=== PATIENT | male | born 1945 | race Caucasian/White ===

== ENCOUNTER 2021-08-23 10:44 | Inpatient (IN) | payer MEDICARE, SELFPAY ==
[2021-08-23] VITALS (8 sets, daily range): BP systolic 110–156; BP diastolic 56–86; PULSE 80–102; RESP 16–21; TEMP 36.4–36.6; O2SAT 91–97
--- NOTE | ~2021-08-23 | CT_ITS ---
EXAMINATION: CTA chest PE protocol EXAM DATE: 08/23/2021 22:23 INDICATION: Shortness of breath. TECHNIQUE: Spiral CTA of the chest (pulmonary arteries) was performed with 100 cc Omnipaque 350 intr avenous contrast injection. Images were acquired during the pulmonary arterial phase. Coronal maxi mum intensity projection 3D-reconstructions were created by the technologist on dedicated workstation . Axial, coronal and sagittal reformatted images were reviewed. The dose-length product (DLP) for t his examination was 300.98 mGy-cm. The exposure was tailored according to patient size (auto mA exp osure control), and iterative reconstruction (ASIR) was used as additional dose reduction technique. There is no prior study for comparison. FINDINGS: There is large right-sided pulmonary embolism nearly occluding the right mainstem bronchus . Scattered extension into segmental pulmonary arteries on the right. There are scattered segmental l eft sided pulmonary emboli. Evidence of right heart strain. Large clot burden. No thoracic aortic dis section. Some small regions of mosaic attenuation, could be air trapping or early infarction. There is an aberrant right subclavian artery, a normal congenital variant. There are no pleural or pericar dial effusions. Tracheobronchial tree is patent. There is no mediastinal, hilar or axillary lymph adenopathy. There is no pneumothorax. Heart normal in size. There is mild coronary arterial johnson cification, arterial sclerosis. Some right renal calcification, cortical scarring. Bilateral adrenal hyperplasia. There is thoracic spondylosis without osteoblastic or osteolytic lesions identified. IMPRESSION: 1. Bilateral pulmonary emboli, high clot burden. Evidence of right heart strain. 2. Regions of faint mosaic attenuation probably air trapping. Early infarction or groundglass airspa ce disease not excludable. I discussed pulmonary emboli with Nicolasa Garza MD at 08/23/2021 22:29 CURER ACID DRUM. Reviewed, dictated and finalized at location A. R ACID DRUM IMPRESSION: 1. Bilateral pulmonary emboli, high clot burden. Evidence of right heart strai n. 2. Regions of faint mosaic attenuation probably air trapping. Early infarction or groundglass airspace disease not excludable. I discussed pulmonary emboli with Nicolasa Garza MD at 08/23/2021 22:29 CURER ACID DRUM.
--- NOTE | ~2021-08-23 | XR_ITS ---
EXAMINATION: XR chest 1V portable EXAM DATE: 08/23/2021 20:07 INDICATION: Shortness of breath. TECHNIQUE: Portable AP frontal chest x-ray was obtained. There is no prior study for comparison. FINDINGS: The lungs are clear. There are no pleural effusions. The cardiomediastinal silhouette is within normal limits. There is no pneumothorax suspected. The bones and soft tissues are unremarkab le. IMPRESSION: No acute cardiopulmonary findings. Reviewed, dictated and finalized at location A. FIELD DATA COLLECTOR
--- NOTE | 2021-08-23 18:55 | PC.NURSE ---
placed pt on 2L of oxygen for comfort via nasal cannula.
--- NOTE | 2021-08-23 19:15 | PC.NURSE ---
Pt states he has been SOB for a couple months and increase SOB on exertion
--- NOTE | 2021-08-23 19:25 | ECG_ITS ---
Measurements Intervals [place] Rate: 87 P: 79 [place]: 174 QRS: 238 QRSD: 135 T: -17 QT: 386 QTc: 465 Interpretive Statements SINUS RHYTHM RIGHT BUNDLE BRANCH BLOCK LEFT POSTERIOR FASCICULAR BLOCK BASELINE ARTIFACT- I, II, III, AVR, AVL, AVF, V2-V5 ABNORMAL ECG Electronically Signed On 08-23-2021 20:16:57 SHOPPER MARKETING MANAGER by Dimas Cabrera D.O.
--- NOTE | 2021-08-23 19:43 | ED.SOB ---
HPI - SOB/Dyspnea General Chief Complaint: Shortness of Breath/Dyspnea Stated Complaint: sob/chest pain Time Seen by Provider: 08/23/21 19:07 Source: patient Mode of arrival: ambulatory Limitations: no limitations History of Present Illness HPI Narrative: Patient is 76 years old white male presented to the ED with shortness of breath, chest pain, dizziness for the last 6 months. Worse on exertion. The symptoms are getting worse lately. Last Covid vaccine 1 month ago. Patient doesn't take oxygen at home, patient is DNR. Patient have history of hypertension, doesn't smoke or drink or uses drugs. Last time was seen by his family physician 6 months ago. And he did not tell his physician about the shortness of breath at that time. Patient denies any fever, chills, nausea, vomiting, chest pain, headache, abdominal pain, back pain. Related Data Allergies Allergy/AdvReac Type Severity Reaction Status Date / Time No Known Allergies Allergy Verified 08/23/21 18:56 Review of Systems Review of Systems: CONSTITUTIONAL: Denies fever, chills, or sweats. EYES: Denies visual changes, redness, or discharge. ENT: Denies rhinorrhea, congestion, sore throat, or otalgia. CARDIOVASCULAR: Denies chest pain, palpitations, or edema. RESPIRATORY: Denies cough or dyspnea. GASTROINTESTINAL: Denies abdominal pain, nausea, vomiting, or diarrhea. GENITOURINARY: Denies dysuria or hematuria. SKIN: Denies rash or itching. MUSCULOSKELETAL: Denies back pain, joint pain, or myalgia. NEUROLOGIC: Denies headache, numbness, or weakness. PSYCHIATRIC: Denies anxiety or depression. Exam Narrative: General appearance: Well-developed, well-nourished Skin: Normal color Head: Normocephalic, nontraumatic Eyes: Clear conjunctiva ENT: Oropharynx normal, ears normal, nose normal Neck: Supple, nontender Chest and respiratory: Airway patent, no respiratory distress, no accessory muscle use Heart: Regular rate/rhythm Abdomen: Soft, nontender, no organomegaly, quiet bowel sounds Vascular: Normal peripheral pulses, normal capillary refill. Musculoskeletal: Normal range of motion, nontender back Neurologic: Alert and oriented ?3, TOOL DESIGN ENGINEER is normal as tested, no gross motor deficit Course Course Emergency Course: Stable Consultations Consultation #1: Dr. Simons agreed with the plan for Lovenox and echo in the morning Date: 08/24/21 Time: 00:22 Vital Signs Vital signs: Vital Signs Temperature 36.4 C 08/23/21 10:51 Pulse Rate 93 08/23/21 10:51 Respiratory Rate 20 08/23/21 10:51 Blood Pressure 119/68 08/23/21 10:51 Pulse Oximetry 95 08/23/21 10:51 Temperature 36.6 C 08/23/21 17:10 Pulse Rate 94 08/23/21 22:54 Respiratory Rate 20 08/23/21 22:54 Blood Pressure 142/86 H 08/23/21 22:54 Pulse Oximetry 91 08/23/21 22:54 MDM - SOB/Dyspnea MDM Narrative Medical decision making narrative: Patient presents with gradual progressive shortness of breath over the last 6 months. Differential diagnosis as below. Differential Diagnosis Differential diagnosis: Likely congestive heart failure, pulmonary embolism and other (Coronary artery disease) Lab Data Result diagrams: 08/23/21 19:41 08/23/21 19:41 Labs: Lab Results 08/23/21 08/23/21 08/23/21 Range/Units 19:41 19:41 19:41 WBC 7.1 (4.5-10.0) K/mm3 RBC 4.71 (4.6-6.20) M/mm3 Hgb 14.0 (14.0-18.0) g/dL Hct 41.1 L (42.0-52.0) % MCV 87.3 (80-100) fl MCH 29.7 (26-34) pg MCHC 34.1 (32-36) g/dl RDW 12.9 (11.5-14.5) % Plt Count 197 (150-375) k/mm3 MPV 10.4 (7.4-10.4) fl Immature Gran % (Auto) 0.3 (0-0.5) % Neut % (Auto) 74.6 H (45.5-73.1)
[2021-08-23 19:47] LABS: Basophils Absolute Auto 0.1 K/mm3 (0.0-0.1); Basophils Percent Auto 0.8 % (0.2-1.2); Eosinophils Percent Auto 0.3 % (0-4.4); Hematocrit 41.1 % (42.0-52.0); Immature Granulocyte Absolute 0.02 K/mm3 (0.00-0.031); Immature Granulocyte Percent A 0.3 % (0-0.5); Lymphocytes Absolute Auto 1.11 K/mm3 (0.9-3.2); Lymphocytes Percent Auto 15.6 % (18.3-44.2); Mean Corpuscular HGB Conc 34.1 g/dl (32-36); Mean Corpuscular Hemoglobin 29.7 pg (26-34); Mean Corpuscular Volume 87.3 fl (80-100); Mean Platelet Volume 10.4 fl (7.4-10.4); Monocytes Absolute Auto 0.6 K/mm3 (0.1-0.6); Monocytes Percent Auto 8.4 % (2.6-8.5); Neutrophils Absolute Auto 5.3 K/mm3 (1.3-6.7); Neutrophils Percent Auto 74.6 % (45.5-73.1); Platelet Count Result 197 k/mm3 (150-375); Red Blood Count 4.71 M/mm3 (4.6-6.20); Red Cell Distribution Width 12.9 % (11.5-14.5); White Blood Count 7.1 K/mm3 (4.5-10.0)
[2021-08-23 19:56] LABS: Alveolar/Arterial O2 Gradient 61.5 mmHg; Base Excess ABG -3.3 mEq/l (+/-2.0); Device ROOM AIR; Fractional Inspired Oxygen 21 %; Oxygen Content ABG 18.6 %vol (16.0-22.0); Oxygen Saturation ABG 93.2 % (95.0-100.0); Oxyhemoglobin 91.6 % THb (90.0-100.0); PO2 ABG 59.5 mmHg (80.0-100.0); PO2 FiO2 Ratio Arterial Blood 2.83 %; Site Drawn RIGHT BRACHIAL; Total Hemoglobin 14.5 g/dL (12.0-18.0); pH ABG 7.493 (7.350-7.450)
[2021-08-23 19:57] LABS: Alanine Aminotransferase 15 U/L (4-50); Albumin Level 3.9 g/dL (3.5-5.1); Alkaline Phosphatase 77 U/L (38-126); Anion Gap 11 mmol/L (8-16); Aspartate Amino Transferase 23 U/L (17-59); Bilirubin,Total 0.6 mg/dL (0.2-1.3); Blood Urea Nitrogen 17 mg/dL (9-20); Calcium 8.8 mg/dL (8.4-10.2); Carbon Dioxide 18 mmol/L (22-30); Chloride 108 mmol/L (98-107); Estimated CRCL calculation 42 ml/min; Estimated Glomerular Filt Rate 53; Glucose 117 mg/dL (65-110); Magnesium 2.3 mg/dL (1.6-2.3); Potassium 3.7 mmol/L (3.4-5.0); Sodium 137 mmol/L (137-145)
[2021-08-23 19:58] LABS: INR 1.1; Prothrombin Time 14.5 Seconds (11.1-14.7)
[2021-08-23 20:12] LABS: NT Pro B Type Natriuretic Pept 8100 pg/mL (5-100); Troponin I 0.057 ng/mL (0.000-0.034)
[2021-08-23 21:20] LABS: D Dimer 4.18 ug/mL (<0.48)
[2021-08-23 21:39] LABS: Add Urine Microscopic? YES; Appearance Urine Clear (Clear); Bacteria Urine Trace /hpf; Bilirubin Urine Negative (Negative); Blood Urine 2+ (Negative); Color Urine Yellow (Yellow); Glucose Urine UA Negative (Negative); Ketones Urine Trace mg/dL (Negative); Leukocyte Esterase Ur 1+ LEU/UL (Negative); Mucus Urine Rare /lpf; Nitrate Urine Negative (Negative); Protein Urine 1+ mg/dL (Negative); Specific Grav Ur 1.014 (1.001-1.035); Squamous Epithelial Cell Urine Moderate /hpf (Few); Urobilinogen Urine Negative mg/dL (<2.0); WBC Urine 31-50 /hpf
[2021-08-23] MEDS: ENOXAPARIN 80 MG/0.8 ML SYRINGE SUB-Q (22:59)
--- NOTE | 2021-08-23 23:00 | ECG_ITS ---
Measurements Intervals [place] Rate: 91 P: 76 [place]: 171 QRS: 249 QRSD: 138 T: -28 QT: 388 QTc: 477 Interpretive Statements SINUS RHYTHM RIGHT BUNDLE BRANCH BLOCK LEFT POSTERIOR FASCICULAR BLOCK BASELINE ARTIFACT- I, II, III, AVR, AVL, AVF, V1-V6 ABNORMAL ECG Electronically Signed On 08-24-2021 6:32:51 CENTRIFUGAL CHILLER TECHNICIAN by Dimas Cabrera D.O.
[2021-08-24] VITALS (14 sets, daily range): BP systolic 114–147; BP diastolic 57–77; PULSE 68–88; RESP 16–20; TEMP 36.1–37.2; O2SAT 92–99; BMI 25.9
--- NOTE | 2021-08-24 | ECHO_ITS ---
Patient Info Name: Dewey Edwards Age: 76 years : 1945 Gender: Male Ht: 69 in Wt: 174 lbs BSA: 1.97 m2 HR: 87 bpm BP: 123 / 69 mmHg Heart Rhythm: Sinus Rhythm Technical Quality: Fair Exam Date: 08/24/2021 8:13 AM Exam Location: [facility] Patient Status: Inpatient Admit Date: 08/24/2021 Staff Ordering Physician: Nicolasa Garza MD Elevated Motorman: Rosi Bermudez RDCS Attending Provider: Eris Goins MD Exam Type: CA echo doppler color flow Study Info Indications - Right heart strain secondary to pulmonary embolism Complete two-dimensional, color flow and Doppler transthoracic echocardiogram is performed. Summary 1. Complete two-dimensional, color flow and Doppler transthoracic echocardiogram is performed. 2. Left ventricular systolic function is normal, estimated at 60-65%. 3. Flattening of the septum in diastole and systole consistent with right ventricular volume and pressure overload. 4. Left ventricular chamber dimension is normal. 5. Right ventricular chamber dimension is mildly enlarged. 6. Mild to moderate right ventricular systolic dysfunction with relative sparing of the apex consistent with Bower sign which can be seen with pulmonary embolism and/or right ventricular infarction. 7. There is mild tricuspid valve regurgitation. 8. Severe pulmonary hypertension, estimated pulmonary arterial systolic pressure is 79 mmHg. Left Ventricle Left ventricular chamber dimension is normal. Left ventricular systolic function is normal, estimated at 60-65%. There is mildly increased left ventricular wall thickness. The left ventricular diastolic function is grade I diastolic dysfunction. Right Ventricle Right ventricular chamber dimension is mildly enlarged. Right ventricular systolic function is reduced. Flattening of the septum in diastole and systole consistent with right ventricular volume and pressure overload. Mild to moderate right ventricular systolic dysfunction with relative sparing of the apex consistent with Bower sign which can be seen with pulmonary embolism and/or right ventricular infarction. Prominent moderator band. Left Atria Left atrial chamber dimension is normal. Right Atria Right atrial chamber dimension is normal. Aortic Valve The aortic valve is trileaflet. There is mild aortic valve sclerosis. There is no aortic valve stenosis. There is no aortic valve regurgitation. Pulmonic Valve The pulmonic valve is not well visualized. There is trace pulmonic regurgitation. Mitral Valve The mitral valve has normal leaflets. There is trace mitral valve regurgitation. Tricuspid Valve The tricuspid valve leaflets are normal. There is mild tricuspid valve regurgitation. Severe pulmonary hypertension, estimated pulmonary arterial systolic pressure is 79 mmHg. Pericardium/Pleural The pericardium appears normal. There is no pericardial effusion. Inferior Vena Cava Normal inferior vena cava with >50% collapse upon inspiration consistent with normal right atrial pressure, 5 mmHg. Aorta The aortic root size at the sinus of Valsalva is normal. Left Ventricular Outflow Tract Name Value Normal LVOT 2D LVOT Diameter 2.0 cm
[2021-08-24 01:17] LABS: Troponin I 0.057 ng/mL (0.000-0.034)
--- NOTE | 2021-08-24 01:21 | PC.NURSE ---
attempted to call report nurse will call back
--- NOTE | 2021-08-24 02:24 | ADMGEN ---
This patient, Dewey Edwards, was admitted to IMU Room 204-01 08/24/21 at 0210. Patient/family oriented to hospital policies and general routines including ID bracelet, bed and alarms, visiting hours, pain management, procedures, bathroom and other care routines, personal items, smoking policy, room service/diet, and visiting hours. Information on how to activate the Rapid Response Team has been discussed. Patient/Family are encouraged to report perceived risks to care and to ask questions if they do not understand what they are told or what they should do.
[2021-08-24 04:00] LABS: Troponin I 0.065 ng/mL (0.000-0.034)
--- NOTE | 2021-08-24 04:54 | PM.IMHP ---
H&P: HPI History of Present Illness Date/Time: 08/24/21 04:54 Chief Complaint: Shortness of breath. Narrative: This is a 76-year-old male with past medical history significant for hypertension, patient presented to the emergency room due to worsening shortness of breath according to patient this has going on for the last 5 months or so initially started when walking 3 blocks then it got worse with doing usual errands and now is with minimal exertion walking distance within the house, patient also had 1 episode of syncope while mowing the lawn in May felt dizzy, lightheaded and passed out in his front yard with spontaneous recovery of consciousness. Patient also has noted decreased stamina, chest pain with activity, poor appetite, weight loss of roughly 15-20 lb, no fevers, no rigors, no chills, no nausea, no vomiting, no abdominal pain, no diaphoresis no night sweats. Preliminary workup in the emergency room was significant for a D-dimer of 4 a CTA of the chest was significant for acute pulmonary embolism, brain natriuretic peptide was upwards 8000 and a troponin was 0.057, a chest x-ray was clear. Patient has been admitted for further evaluation management and treatment. Review of Systems Review of Systems: Shortness of breath decreased stamina weight loss lightheadedness chest pain with exertion Constitutional: Constitutional: Denies chills, Reports fatigue, Denies fever(s), Denies malaise, Denies night sweats, Reports poor appetite, Denies weakness and Reports weight loss Eyes: Eyes: Denies change in vision ENT: Denies dysphagia, Denies nasal congestion, Denies nasal discharge, Denies nasal obstruction and Denies odynophagia Cardiovascular: Cardiovascular: Reports chest pain with activity, Denies claudication, Denies leg edema, Reports lightheadedness, Denies radiating jaw, neck or arm pain, Denies palpitations, Reports dyspnea on exertion, Denies orthopnea and Denies paroxysmal nocturnal dyspnea Respiratory: Respiratory: Denies change in phlegm color, Denies cough, Denies excessive phlegm production, Denies pain on inspiration, Denies pain with cough and Denies wheezing Gastrointestinal: Gastrointestinal: Denies abdominal pain, Denies dyspepsia, Reports heartburn, Denies diarrhea and Denies nausea Genitourinary: Genitourinary: Denies dysuria and Denies flank pain Musculoskeletal: Musculoskeletal: Denies arthralgias and Denies joint swelling Integumentary/Breasts: Skin/Breast: Denies rash Neurologic: Reports syncope, Denies focal weakness and Denies Sensory deficit (Neuro) Psychiatric: Psychiatric: Reports no additional psychiatric complaints and Reports as per HPI Endocrine: Endocrine: Denies palpitations Hematologic/Lymphatic: Hematologic/Lymphatic: Reports no additional hematologic/lymphatic complaints and Reports as per HPI Allergic/Immunologic: Allergic/Immunologic: Reports no additional allergic/immunologic complaints and Reports as per HPI COUNT INCLUDES THE [facility] Social History Social History Smoking status: Never smoker Alcohol intake: current Drinks per week: 1 Substance use: never Substance use type: does not use Spiritual care concerns: No Meds Home Medications and Allergies Home Medications Medication Instructions Recorded Confirmed Type amlodipine 10 mg PO DAILY 08/24/21 08/24/21 History terazosin 2 mg PO DAILY 08/24/21 08/24/21 History Allergies Allergy/AdvReac Type Severity Reaction Status Date / Time No Known Allergies Allergy Verified 08/23/21 18:56 Vital Signs Vital Signs - 24 hr 08/23/21 10:51 08/23/21 13:58 08/23/21 17:10 Temperature 97.6 F 97.6 F 97.9 F Pulse Rate 93 92 80 Respiratory Rate 20 18 16 Blood Pressure 119/68 112/67 110/56 L Pulse Oximetry 95 94 95 08/23/21 18:54 08/23/21 18:55 08/23/21 19:15 Temperature Pulse Rate 102 H 98 Respiratory Rate 21 H 21 H Blood Pressure 156/82 H 135/80 Pulse Oximetry 93 93 9
[2021-08-24 07:25] LABS: Troponin I 0.063 ng/mL (0.000-0.034)
[2021-08-24] MEDS: TERAZOSIN HCL 1 MG CAPSULE 2 MG PO (09:20)
[2021-08-24] MEDS: amLODIPine BESYLATE 5 MG TABLET 10 MG PO (09:20)
--- NOTE | 2021-08-24 11:24 | PM.CNCAR ---
Assessment and Plan Additional Plan 76-year-old gentleman who interestingly has gradual onset of shortness of breath for several months found to have extensive bilateral pulmonary emboli. Obviously this is not 1 singular event but likely has been having embolic events for some time. Does have a CT scan evidence of right heart strain which of course is not surprising in this setting it is also not unexpected the troponin levels are elevated. In the setting of normal oxygenation on room air and stable blood pressure and cardiac rhythm there is no indication for pulmonary thromboembolectomy. He needs to be systemically anticoagulated. I would choose 1 of the NOAC drugs what ever is your preference. At this point there is no other specific cardiac recommendations to make. Robert Chisholm MD [facility] History of Present Illness History of Present Illness Consult date/time: 08/24/21 11:24 Reason For Visit: Pulmonary embolism, elevated troponin Narrative: This is a 76-year-old man that I am seeing at the request of the hospitalist because of a pulmonary embolism with evidence of right heart strain and elevated troponin levels. The patient has no prior history of cardiac problems that he is aware of. He does carry the diagnosis of hypertension for which she normally takes amlodipine. He reports that he began to notice symptoms of shortness of breath somewhat gradually over the onset of the last 2-3 months. He says at least starting in May of 2021 and possibly a little earlier than that. The shortness of breath started with walking distances of up to a mi or 2. He is used to walking distances for exercise. He noted he had to stop because of dyspnea. This gradually progressed with more moderate activity to the point were in the last week or so he has been having shortness of breath which is walking around his house. For this reason he came to the emergency room yesterday for evaluation. His evaluation unfortunately has shown evidence of significant pulmonary embolization bilaterally with evidence of right heart strain according to the radiologist impression of the CT scan. An echocardiogram has been appropriately ordered by the hospitalist as yet to be performed. He does not have any other symptoms such as chest pain pressure or heaviness he denies any history of orthopnea PND or accumulating edema. Once again he states there is no previous cardiac problem. His electrocardiogram shows sinus mechanism with right bundle branch block and left posterior fascicular block. His troponin levels are elevated and flat at 0.05. He is oxygenating normally on room air. He was sleeping flat in bed when I came in the room to see him upon awakening does not report any other symptoms. His telemetry shows sinus rhythm in the 80s and 90s blood pressure is normal. Review of Systems Constitutional: Constitutional: Reports no additional constitutional complaints Eyes: Eyes: Reports no additional eye complaints ENT: Reports system reviewed and no additional complaints, except as documented Cardiovascular: Cardiovascular: Reports no additional cardiovascular complaints Respiratory: Respiratory: Reports as per HPI and Reports dyspnea on exertion Gastrointestinal: Gastrointestinal: Reports no additional gastrointestinal complaints Musculoskeletal: Musculoskeletal: Reports no additional musculoskeletal complaints Integumentary/Breasts: Skin/Breast: Reports system reviewed and no additional complaints, except as docu Neurologic: Reports system reviewed and no additional complaints, except as documented Endocrine: Endocrine: Reports no additional endocrine complaints Hematologic/Lymphatic: Hematologic/Lymphatic: Reports no additional hematologic/lymphatic complaints Allergic/Immunologic: Allergic/Immunologic: Reports no additional allergic/immunologic complaints [facility] Social History Social History Smoking stat
[2021-08-24] MEDS: ENOXAPARIN 80 MG/0.8 ML SYRINGE SUB-Q ×2 (11:54→22:49)
--- NOTE | 2021-08-24 13:31 | PM.IMPN ---
Subjective Date/time seen: 08/24/21 13:31 Interval history: 76-year-old male with past medical history significant for hypertension, patient presented to the emergency room due to worsening shortness of breath according to patient this has going on for the last 5 months or so initially started when walking 3 blocks then it got worse with doing usual errands and now is with minimal exertion walking distance within the house, patient also had 1 episode of syncope while mowing the lawn in May felt dizzy, lightheaded and passed out in his front yard with spontaneous recovery of consciousness. Found to have PE started on lovenox shots seen by cardiology who advised anticoagulation consult made to case management for DOAC cost. Objective Data Vital Signs Vital Signs: Vital Signs - 24 hr 08/23/21 13:58 08/23/21 17:10 08/23/21 18:54 Temperature 36.4 C 36.6 C Pulse Rate 92 80 Respiratory Rate 18 16 Blood Pressure 112/67 110/56 L Pulse Oximetry 94 95 93 08/23/21 18:55 08/23/21 19:15 08/23/21 19:16 Temperature Pulse Rate 102 H 98 Respiratory Rate 21 H 21 H Blood Pressure 156/82 H 135/80 Pulse Oximetry 93 97 97 08/23/21 22:54 08/24/21 00:25 08/24/21 02:10 Temperature Pulse Rate 94 88 82 Respiratory Rate 20 18 Blood Pressure 142/86 H 129/77 Pulse Oximetry 91 92 08/24/21 02:17 08/24/21 04:00 08/24/21 06:00 Temperature 36.6 C 36.6 C Pulse Rate 80 75 87 Respiratory Rate 18 18 Blood Pressure 147/75 H 123/69 Pulse Oximetry 99 98 08/24/21 08:00 08/24/21 10:00 08/24/21 12:00 Temperature 36.6 C 36.3 C L Pulse Rate 76 88 81 Respiratory Rate 16 18 Blood Pressure 128/69 128/69 Pulse Oximetry 96 93 Intake/Output Intake/Output: Intake & Output 08/21/21 08/22/21 08/23/21 08/24/21 23:59 23:59 23:59 23:59 Intake Total 390 Output Total 700 Balance -310 Meds/Results Medications: Active Medications Generic Name Dose Route Start Last Admin Trade Name Freq PRN Reason Stop Dose Admin Amlodipine Besylate 10 mg 08/24/21 09:00 08/24/21 09:20 Amlodipine Besylate 5 Mg Tablet PO 10 mg DAILY YA Administration Enoxaparin Sodium 80 mg 08/24/21 11:00 08/24/21 11:54 Enoxaparin 80 Mg/0.8 Ml Syringe SUB-Q 80 mg Q12H YA Administration Acetaminophen 1,000 mg in 100 mls @ 400 mls/hr 08/24/21 00:13 Ofirmev 1,000 Mg Ivpb IVPB 08/25/21 00:12 Q6H PRN Mild Pain (1-3) or Fever Ceftriaxone Sodium/Dextrose 1 gm in 50 mls @ 100 mls/hr 08/24/21 07:00 08/24/21 09:51 Rocephin 1 Gm/D5w 50 Ml IVPB Infused Q24H YA Infusion Terazosin HCl 2 mg 08/24/21 09:00 08/24/21 09:20 Terazosin Hcl 1 Mg Capsule PO 09/23/21 08:59 2 mg DAILY YA Administration Radiology Results: ITS Impressions Chest X-Ray 08/23/21 20:14 IMPRESSION: No acute cardiopulmonary findings. Chest CTA 08/23/21 22:24 IMPRESSION: 1. Bilateral pulmonary emboli, high clot burden. Evidence of right heart strain. 2. Regions of faint mosaic attenuation probably air trapping. Early infarction or groundglass airspace disease not excludable. I discussed pulmonary emboli with Nicolasa Garza MD at 08/23/2021 22:29 PROGRAMMING EQUIPMENT OPERATOR. Labs Labs: Laboratory Results - last 24 hr 08/23/21 08/23/21 08/23/21 19:41 19:41 19:41 WBC 7.1 RBC 4.71 Hgb 14.0 Hct 41.1 L MCV 87.3 MCH 29.7 MCHC 34.1 RDW 12.9 Plt Count 197 MPV 10.4 Immature Gran % (Auto) 0.3 Neut % (Auto) 74.6 H Lymph % (Auto) 15.6 L [place] % (Auto) 8.4 Eos % (Auto) 0.3 Baso % (Auto) 0.8 Lymph # (Auto) 1.11 [place] # (Auto) 0.6 Eos # (Auto) 0.0 Baso # (Auto) 0.1 Abs Immat Gran (auto) 0.02 Absolute Neuts (auto) 5.3 Absolute Nucleated RBC 0.0 Nucleated RBC % 0.0 PT 14.5 INR 1.1 APTT 27.0 D-Dimer 4.18 H Puncture Site ABG pH ABG pCO2 ABG pO2 ABG PO2/FiO2 Ratio ABG HCO3 ABG O2 Saturation ABG O2 Content
[2021-08-25] VITALS (18 sets, daily range): BP systolic 85–142; BP diastolic 50–77; PULSE 53–84; RESP 18–20; TEMP 36–36.8; O2SAT 95–99
--- NOTE | 2021-08-25 06:00 | ECG_ITS ---
Measurements Intervals [place] Rate: 64 P: 84 [place]: 172 QRS: 260 QRSD: 141 T: -47 QT: 463 QTc: 480 Interpretive Statements SINUS RHYTHM RIGHT BUNDLE BRANCH BLOCK LEFT POSTERIOR FASCICULAR BLOCK T WAVE ABNORMALITY IN ANT/INF LEADS- CONSIDER ISCHEMIA BASELINE ARTIFACT- I, II, AVR ABNORMAL ECG Electronically Signed On 08-25-2021 9:02:59 GROUNDSKEEPER PORTER by Dimas Cabrera D.O.
[2021-08-25] MEDS: TERAZOSIN HCL 1 MG CAPSULE 2 MG PO (08:36)
[2021-08-25] MEDS: amLODIPine BESYLATE 5 MG TABLET 10 MG PO (08:36)
--- NOTE | 2021-08-25 11:07 | PM.IMPN ---
Progress Note: A&P Assessment and Plan (1) Pulmonary embolism: Qualifiers: Acute cor pulmonale presence: unspecified Chronicity: acute Pulmonary embolism type: unspecified Qualified Code(s): I26.99 - Other pulmonary embolism without acute cor pulmonale Code(s): I26.99 - Other pulmonary embolism without acute cor pulmonale Status: Acute Assessment and Plan: Admit to telemetry Patient was started on anticoagulation with Lovenox High clot burden; echocardiogram Unclear cause of pulmonary embolism Patient will need workup in the outpatient setting (2) Elevated troponin: Code(s): R77.8 - Other specified abnormalities of plasma proteins Status: Acute Assessment and Plan: Likely secondary to right ventricular strain Troponins x3 have been obtained EKG with RBBB (3) 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 Mild to moderate right ventricular systolic dysfunction with relative sparing of the apex consistent with Bower sign which can be seen with pulmonary embolism and/or right ventricular infarction. Monitor daily intake and output (4) Chest pain: Code(s): R07.9 - Chest pain, unspecified Status: Acute Assessment and Plan: Patient has been having chest pain with activity. This can be explained by the high clot burden.Cardiology consulted. Follow up their recommendations. Subjective Date/time seen: 08/25/21 14:07 S: Patient was seen and examined at the bedside he is comfortable. No complaints. Review of Systems Review of Systems: All systems reviewed & are unremarkable except as noted in HPI and below Constitutional: Constitutional: Denies chills, Reports fatigue, Denies fever(s), Denies malaise, Denies night sweats, Reports poor appetite, Denies weakness and Reports weight loss Eyes: Eyes: Denies change in vision ENT: Denies dysphagia, Denies nasal congestion, Denies nasal discharge, Denies nasal obstruction and Denies odynophagia Cardiovascular: Cardiovascular: Reports chest pain with activity, Reports syncope, Denies claudication, Denies leg edema, Reports lightheadedness, Denies radiating jaw, neck or arm pain, Denies palpitations, Reports dyspnea on exertion, Denies orthopnea and Denies paroxysmal nocturnal dyspnea Respiratory: Respiratory: Denies change in phlegm color, Denies cough, Denies excessive phlegm production, Denies pain on inspiration, Denies pain with cough, Reports dyspnea on exertion and Denies wheezing Gastrointestinal: Gastrointestinal: Denies abdominal pain, Denies dysphagia, Denies dyspepsia, Reports heartburn, Denies diarrhea, Denies nausea and Denies odynophagia Genitourinary: Genitourinary: Denies dysuria and Denies flank pain Musculoskeletal: Musculoskeletal: Denies arthralgias and Denies joint swelling Integumentary/Breasts: Skin/Breast: Denies rash Neurologic: Reports syncope, Denies focal weakness, Denies Sensory deficit (Neuro) and Denies weakness Psychiatric: Psychiatric: Reports no additional psychiatric complaints and Reports as per HPI Endocrine: Endocrine: Reports fatigue and Denies palpitations Hematologic/Lymphatic: Hematologic/Lymphatic: Reports no additional hematologic/lymphatic complaints and Reports as per HPI Allergic/Immunologic: Allergic/Immunologic: Reports no additional allergic/immunologic complaints, Reports as per HPI and Denies wheezing Exam Narrative: Patient is laying in gurney. Const: General: comfortable, no acute distress, well developed, alert and awake Nutritional Appearance: thin Orientation/consciousness: patient oriented x3 HENMT: Head: normal to inspection, normocephalic and atraumatic Ears: hearing grossly normal bilaterally General nose exam: Normal external nose present Face and sinus: normal
[2021-08-25] MEDS: ENOXAPARIN 80 MG/0.8 ML SYRINGE SUB-Q ×2 (12:11→22:48)
--- NOTE | 2021-08-25 13:11 | PM.PNCARD ---
Progress Note: A&P Assessment and Plan (1) Pulmonary embolism: Qualifiers: Acute cor pulmonale presence: unspecified Chronicity: acute Pulmonary embolism type: unspecified Qualified Code(s): I26.99 - Other pulmonary embolism without acute cor pulmonale <RICHARD Lizarraga - Last Filed: 08/25/21 15:14> Code(s): I26.99 - Other pulmonary embolism without acute cor pulmonale <RICHARD Lizarraga - Last Filed: 08/25/21 15:14> Status: Acute <Carrie CollinsALISSA maradiaga-C - Last Filed: 08/25/21 15:14> Assessment and Plan: Presented with complaints of gradual shortness of breath over the past few months. He was found to have extensive bilateral pulmonary emboli. His CT had evidence of right heart strain, echocardiogram showed [id number] right ventricular systolic dysfunction, severe pulmonary estimated PASP 79 mmHg. He is currently receiving systemic anticoagulation with Lovenox. Obviously, he will to be switched to a DOAC before he leaves the hospital. <RICHARD Lizarraga - Last Filed: 08/25/21 15:14> (2) Elevated troponin: Code(s): R77.8 - Other specified abnormalities of plasma proteins <RICHARD Lizarraga - Last Filed: 08/25/21 15:14> Status: Acute <Carrie Bowen APNTeaEstefany - Last Filed: 08/25/21 15:14> Assessment and Plan: This was related to pulmonary embolism, not ACS. <RICHARD Lizarraga - Last Filed: 08/25/21 15:14> (3) Pulmonary hypertension: Code(s): I27.20 - Pulmonary hypertension, unspecified <RICHARD Lizarraga - Last Filed: 08/25/21 15:14> Status: Acute <Carrie Bowen APN-C - Last Filed: 08/25/21 15:14> Assessment and Plan: Severe pulmonary hypertension on recent echocardiogram. He should follow up with our office as an outpatient to reassess his RV function and pulmonary hypertension. <RICHARD Lizarraga - Last Filed: 08/25/21 15:14> (4) Dizziness of unknown etiology: Code(s): R42 - Dizziness and giddiness <RICHARD Lizarraga - Last Filed: 08/25/21 15:14> Status: Acute <RICHARD Lizarraga - Last Filed: 08/25/21 15:14> Assessment and Plan: Check orthostatics <RICHARD Lizarraga - Last Filed: 08/25/21 15:14> Additional Plan He does not have any active cardiac issues at this time. Thank you for asking us to be involved in this case. Cardiology will sign off. Please not hesitate to contact us if we can be of assistance in the care this patient any way. <RICHARD Lizarraga - Last Filed: 08/25/21 15:14> Attending addendum: I agree with the above documentation and plan of care as outlined. <Armen Simons MD - Last Filed: 08/25/21 15:31> Subjective Date/time seen: 08/25/21 13:11 <RICHARD Lizarraga - Last Filed: 08/25/21 15:14> Interval history: Cardiology follow-up for elevated troponin, right heart strain from pulmonary embolism Date of service 08/25/2021: Patient is feeling okay today. He has been ambulating in his room but is complaining of dizziness when he he ambulates. Denies having any dizziness when he is lying in bed. He says that this is been a problem for several months. No other complaints at this time. Denies any chest pain, palpitations, shortness of breath. <RICHARD Lizarraga - Last Filed: 08/25/21 15:14> Review of Systems Constitutional: Constitutional: Reports no additional constitutional complaints <RICHARD Lizarraga - Last Filed: 08/25/21 15:14> Eyes: Eyes: Reports no additional eye complaints <RICHARD Lizarraga - Last Filed: 08/25/21 15:14> ENT: Reports system reviewed and no additional complaints, except as documented <RICHARD Lizarraga - Last Filed: 08/25/21 15:14> Cardiovascular: Cardiovascular: Reports no additional cardiovascular complaints and Reports dyspnea on exertion <RICHARD Lizarraga - Last Filed: 08/25/21 15:14> Respiratory: Respirato
[2021-08-26] VITALS (11 sets, daily range): BP systolic 82–141; BP diastolic 42–72; PULSE 55–70; RESP 16–20; TEMP 36.3–36.9; O2SAT 94–97
--- NOTE | 2021-08-26 08:31 | P.CDI_ITS ---
CDI Query Clarification Request -CHF has been documented -BNP 8100 Please further clarify type and acuity of CHF: * Systolic *Acute * Diastolic *Chronic * Both Systolic and Diastolic *Acute on Chronic * Unable to determine *Unable to determine <Mary Senior RN - Last Filed: 08/26/21 08:33> Clarified Diagnosis (1) Diastolic heart failure: Code(s): I50.30 - Unspecified diastolic (congestive) heart failure <Mary Senior RN - Last Filed: 08/26/21 08:33> Status: Acute <Mary Senior RN - Last Filed: 08/26/21 08:33> Assessment and Plan: Echocardiodram reveals left ventricular systolic function is normal, estimated at 60-65%. There is mildly increased left ventricular wall thickness. The left ventricular diastolic function is grade I diastolic dysfunction. Isolated diastolic CHF, likely acute on chronic. <Nicole Heart MD - Last Filed: 08/29/21 18:49>
--- NOTE | 2021-08-26 09:43 | PM.IMPN ---
Progress Note: A&P Assessment and Plan (1) Pulmonary embolism: Qualifiers: Acute cor pulmonale presence: unspecified Chronicity: acute Pulmonary embolism type: unspecified Qualified Code(s): I26.99 - Other pulmonary embolism without acute cor pulmonale Code(s): I26.99 - Other pulmonary embolism without acute cor pulmonale Status: Acute Assessment and Plan: Admit to telemetry Patient was started on anticoagulation with Lovenox; today we will transition the patient to Eliquis. 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 Mild to moderate right ventricular systolic dysfunction with relative sparing of the apex consistent with Bower sign which can be seen with pulmonary embolism and/or right ventricular infarction. Monitor daily intake and output (4) Chest pain: Code(s): R07.9 - Chest pain, unspecified Status: Acute Assessment and Plan: Patient has been having chest pain with activity. This can be explained by the high clot burden.Cardiology consulted. Follow up their recommendations. (5) Dizziness: Code(s): R42 - Dizziness and giddiness Status: Acute Assessment and Plan: Likely related to relative hypotension. Blood pressure is improving today. Hold amlodipine. Orthostatic vital signs every shift today. Hypotensive episode at 82/42 today. This morning, his blood pressure is improving at 125/67. Subjective Date/time seen: 08/26/21 09:30 S: Patient was seen and examined at the bedside. He looks comfortable; he denied any complaints; there is no chest pain or shortness of breath. Review of Systems Review of Systems: All systems reviewed & are unremarkable except as noted in HPI and below Constitutional: Constitutional: Denies chills, Reports fatigue, Denies fever(s), Denies malaise, Denies night sweats, Reports poor appetite, Denies weakness and Reports weight loss Eyes: Eyes: Denies change in vision ENT: Denies dysphagia, Denies nasal congestion, Denies nasal discharge, Denies nasal obstruction and Denies odynophagia Cardiovascular: Cardiovascular: Reports chest pain with activity, Reports syncope, Denies claudication, Denies leg edema, Reports lightheadedness, Denies radiating jaw, neck or arm pain, Denies palpitations, Reports dyspnea on exertion, Denies orthopnea and Denies paroxysmal nocturnal dyspnea Respiratory: Respiratory: Denies change in phlegm color, Denies cough, Denies excessive phlegm production, Denies pain on inspiration, Denies pain with cough, Reports dyspnea on exertion and Denies wheezing Gastrointestinal: Gastrointestinal: Denies abdominal pain, Denies dysphagia, Denies dyspepsia, Reports heartburn, Denies diarrhea, Denies nausea and Denies odynophagia Genitourinary: Genitourinary: Denies dysuria and Denies flank pain Musculoskeletal: Musculoskeletal: Denies arthralgias and Denies joint swelling Integumentary/Breasts: Skin/Breast: Denies rash Neurologic: Reports syncope, Denies focal weakness, Denies Sensory deficit (Neuro) and Denies weakness Psychiatric: Psychiatric: Reports no additional psychiatric complaints and Reports as per HPI Endocrine: Endocrine: Reports fatigue and Denies palpitations Hematologic/Lymphatic: Hematologic/Lymphatic: Reports no additional hematologic/lymphatic complaints and Reports as per HPI Allergic/Immunologic: Allergic/Immunologic: Reports no additional all
[2021-08-26] MEDS: APIXABAN 5 MG TABLET 10 MG PO ×2 (09:59→20:11)
[2021-08-26] MEDS: TERAZOSIN HCL 1 MG CAPSULE 2 MG PO (10:00)
[2021-08-26 10:28] LABS: Basophils Absolute Auto 0.1 K/mm3 (0.0-0.1); Basophils Percent Auto 1.8 % (0.2-1.2); Eosinophils Absolute Auto 0.2 K/mm3 (0-0.3); Eosinophils Percent Auto 4.5 % (0-4.4); Hemoglobin 13.3 g/dL (14.0-18.0); Immature Granulocyte Absolute 0.01 K/mm3 (0.00-0.031); Immature Granulocyte Percent A 0.2 % (0-0.5); Lymphocytes Absolute Auto 1.14 K/mm3 (0.9-3.2); Lymphocytes Percent Auto 25.7 % (18.3-44.2); Mean Corpuscular HGB Conc 33.3 g/dl (32-36); Mean Corpuscular Hemoglobin 29.6 pg (26-34); Mean Corpuscular Volume 89.1 fl (80-100); Monocytes Absolute Auto 0.6 K/mm3 (0.1-0.6); Monocytes Percent Auto 12.4 % (2.6-8.5); Neutrophils Absolute Auto 2.5 K/mm3 (1.3-6.7); Neutrophils Percent Auto 55.4 % (45.5-73.1); Platelet Count Result 206 k/mm3 (150-375); Red Blood Count 4.49 M/mm3 (4.6-6.20); Red Cell Distribution Width 13.1 % (11.5-14.5); White Blood Count 4.4 K/mm3 (4.5-10.0)
[2021-08-26 10:38] LABS: Anion Gap 9 mmol/L (8-16); Blood Urea Nitrogen 19 mg/dL (9-20); Calcium 8.5 mg/dL (8.4-10.2); Carbon Dioxide 22 mmol/L (22-30); Chloride 108 mmol/L (98-107); Estimated CRCL calculation 37 ml/min; Estimated Glomerular Filt Rate 45; Glucose 130 mg/dL (65-110); Potassium 3.9 mmol/L (3.4-5.0); Sodium 139 mmol/L (137-145)
--- NOTE | 2021-08-26 14:29 | PC.NURSE ---
transferred patient to [facility] via bed. Patient transferred with medications handed to RN at 1435.
[2021-08-27] VITALS: BP 144/66; PULSE 69; RESP 18; TEMP 36.4; O2SAT 94
[2021-08-27 04:00] VITALS: BP 119/67; PULSE 56; RESP 17; TEMP 36.5; O2SAT 94
[2021-08-27 08:00] VITALS: BP 120/68; BP 121/63; PULSE 70; RESP 16; TEMP 36.6; O2SAT 95
[2021-08-27] MEDS: APIXABAN 5 MG TABLET 10 MG PO (09:59)
[2021-08-27] MEDS: TERAZOSIN HCL 1 MG CAPSULE 2 MG PO (09:59)
[2021-08-27 12:00] VITALS: BP 141/64; PULSE 73; RESP 14; TEMP 36.8; O2SAT 95
--- NOTE | 2021-08-27 12:59 | PM.DS ---
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 DS: Discharge Diagnosis Discharge Diagnosis (1) Pulmonary embolism: Qualifiers: Acute cor pulmonale presence: unspecified Chronicity: acute Pulmonary embolism type: unspecified Qualified Code(s): I26.99 - Other pulmonary embolism without acute cor pulmonale Code(s): I26.99 - Other pulmonary embolism without acute cor pulmonale Status: Acute Assessment and Plan: Admit to telemetry Patient was started on anticoagulation with Lovenox; today we will transition the patient to Eliquis. 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 Mild to moderate right ventricular systolic dysfunction with relative sparing of the apex consistent with Bower sign which can be seen with pulmonary embolism and/or right ventricular infarction. Monitor daily intake and output (4) Chest pain: Code(s): R07.9 - Chest pain, unspecified Status: Acute Assessment and Plan: Patient has been having chest pain with activity. This can be explained by the high clot burden.Cardiology consulted. Follow up their recommendations. (5) Dizziness: Code(s): R42 - Dizziness and giddiness Status: Acute Assessment and Plan: Likely related to relative hypotension. Blood pressure is improving today. Hold amlodipine. Orthostatic vital signs every shift today. Hypotensive episode at 82/42 today. This morning, his blood pressure is improving at 125/67. DS: Summary Hospital Course Reason for hospitalization: Shortness of breath. Hospital Course: Please refer to admission H& P. Briefly,this is a 76-year-old male with past medical history significant for hypertension, patient presented to the emergency room due to worsening shortness of breath according to patient this has going on for the last 5 months or so initially started when walking 3 blocks then it got worse with doing usual errands and now is with minimal exertion walking distance within the house, patient also had 1 episode of syncope while mowing the lawn in May felt dizzy, lightheaded and passed out in his front yard with spontaneous recovery of consciousness. Patient also has noted decreased stamina, chest pain with activity, poor appetite, weight loss of roughly 15-20 lb, no fevers, no rigors, no chills, no nausea, no vomiting, no abdominal pain, no diaphoresis no night sweats. Preliminary workup in the emergency room was significant for a D-dimer of 4 a CTA of the chest was significant for acute pulmonary embolism, brain natriuretic peptide was upwards 8000 and a troponin was 0.057, a chest x-ray was clear. Patient has been admitted for further evaluation management and treatment. Patient was diagnosed with extensive bilateral pulmonary emboli, with CT evidence of right heart strain. Cardiology was consulted. Patient was hemodynamically stable and saturating well on room air. There is no indication for pulmonary thromboembolectomy. Elevation of troponin likely secondary to right heart strain. Aside for history of hypertension, well controlled with amlodipine monotherapy, there is no previous cardiac problem. His electrocardiogram shows sinus mechanism with right bundle branch block and left posterior fascicular block. His troponin le
[2021-08-27 22:39] LABS: SARS-CoV-2 RNA PCR Negative
== END 2021-08-27 13:45 | disposition home or self-care (01) | DRG 176 ==
LOC: ANHED 08-24 00:21 → ANHIMU 08-24 10:11 → ANH3MEDSUR 08-27 09:33 → ANHIMU 08-30 11:13
PROVIDERS: Admitting Provider Internal Medicine; Emergency Provider Emergency Medicine; PCP Internal Medicine; Visit Provider Internal Medicine
DX: I26.99 Other pulmonary embolism without acute cor pulmonale (principal); I10 Essential (primary) hypertension; R77.8 Other specified abnormalities of plasma proteins; I27.20 Pulmonary hypertension, unspecified; J98.4 Other disorders of lung; Z20.822 Contact with and (suspected) exposure to COVID-19; I95.9 Hypotension, unspecified
CPT/HCPCS: 36415; 36600; 71045; 71275; 80048; 80053; 81001; 82805; 83735; 83880; 84484; 85025; 85380; 85610; 85730; 87086; 93005; 93306; 96372; 99285; A9270; C9803; J0696; J1650; Q9967; U0003; U0005

== ENCOUNTER 2022-07-26 13:30 | Outpatient (CLI) | payer MEDICARE, SELFPAY ==
--- NOTE | ~2022-07-26 | CT_ITS ---
EXAMINATION: CTA chest PE protocol DATE: 07/26/2022 14:14 INDICATION: Pulmonary embolism follow-up. History of bladder and prostate cancer. TECHNIQUE: Computed tomography angiography (CTA) of the chest was performed with 100 mL Omnipaque-350 intravenous contrast timed to evaluate the pulmonary arteries. Coronal maximum intensity projection 3D-reconstructions were created by the technologist. Automated exposure control and iterative reconst ruction technique were employed. Exam dose: 367.79 mGy-cm total exam DLP. COMPARISON: 08/23/2021 CTA chest: Bilateral pulmonary emboli, high clot burden, with evidence of right heart strain was reported. FINDINGS: There is diagnostic contrast enhancement of the pulmonary arteries and no evidence of pulmo nary embolism. There is thoracic aortic aneurysm. There is an apparent right subclavian artery coursing posterior to the esophagus. Normal heart size. No pericardial or pleural effusion. Bilateral thyroid masses measuring up to approximately 1.4 cm on the left. No hilar or mediastinal ma ss lesion or lymphadenopathy. Calcified hilar or mediastinal lymph nodes, bilateral calcified pulmona ry granulomas consistent with old pulmonary granulomatous disease. Calcified hepatic and splenic gran ulomas. No pulmonary infiltrate or consolidation or suspicious pulmonary mass lesion is detected.. Small sliding hiatal hernia. Right renal scarring, atrophy and calcifications. Severe degenerative disease in the lower cervical spine. No suspicious osteolytic or osteoblastic les ions are noted. IMPRESSION: Resolution of bilateral pulmonary emboli since 08/2021 Bilateral thyroid lesions; consider thyroid ultrasound as clinically appropriate Reviewed, dictated and finalized at [facility]. Reviewed, dictated and finalized at location [facility]. ILLUSTRATOR IMPRESSION: Resolution of bilateral pulmonary emboli since 08/2021 Bilateral thyroid lesions; consider thyroid ultrasound as clinically appropriat e
[2022-07-26 14:08] LABS: Estimated Glomerular Filt Rate 42
== END 2022-07-26 13:31 | disposition home or self-care (01) ==
LOC: ANHIMG 13:31
PROVIDERS: Nurse Practitioner; PCP Internal Medicine; Visit Provider Internal Medicine
DX: I26.99 Other pulmonary embolism without acute cor pulmonale (principal); E07.89 Other specified disorders of thyroid; Z85.46 Personal history of malignant neoplasm of prostate; Z85.51 Personal history of malignant neoplasm of bladder
CPT/HCPCS: 71275; Q9967

== ENCOUNTER 2022-08-25 10:38 | Outpatient (CLI) | payer MEDICARE, SELFPAY ==
--- NOTE | ~2022-08-25 | US_ITS ---
EXAMINATION: US thyroid DATE: 08/25/2022 11:34 INDICATION: Thyroid nodules. Abnormal findings of blood chemistry. TECHNIQUE: Multiple ultrasound images of the thyroid were obtained. COMPARISON: Chest CT 03/10 FINDINGS: The right thyroid lobe measures 3.7 x 2.1 x 2.0 cm. The left thyroid lobe measures 3.3 x 2.3 x 1.9 c m. In the right thyroid lobe, there is a 1.5 cm solid, hypoechoic, wider than tall nodule with ill-d efined margin and coarse calcifications (TI-RADS TR4). In the left thyroid lobe, there is a 1.8 cm pr edominantly cystic nodule (TR1). IMPRESSION: 1. Thyroid nodules. Ultrasound-guided fine-needle aspiration of the right thyroid nodule is recommend ed. Reviewed, dictated and finalized at location [facility]. D MUSEUM IMPRESSION: 1. Thyroid nodules. Ultrasound-guided fine-needle aspiration of the right thyro id nodule is recommended.
== END 2022-08-25 10:39 | disposition home or self-care (01) ==
PROVIDERS: PCP Internal Medicine; Visit Provider Internal Medicine
DX: R79.89 Other specified abnormal findings of blood chemistry (principal); E04.2 Nontoxic multinodular goiter
CPT/HCPCS: 76536

== ENCOUNTER 2022-11-15 12:31 | Outpatient (CLI) | payer MEDICARE, SELFPAY ==
--- NOTE | ~2022-11-15 | US_ITS ---
EXAMINATION: US FNA w image guidance DATE: 11/15/2022 14:00 INDICATION: Right thyroid nodule. TECHNIQUE: The procedure and its benefits and risks were discussed with the patient. Risks specifically discusse d included bleeding. The patient verbalized understanding of the risks and agreed to proceed. The nec k was prepped and draped in the usual sterile manner. 1% lidocaine was used for local anesthesia. T wo passes were made with a 25G needle into the lesion under ultrasound guidance. No biopsy material w as obtained. There were no immediate complications. FINDINGS: Grayscale ultrasound images demonstrate needles advanced into 1.5 cm right thyroid nodule for biopsy. IMPRESSION: 1. Failed ultrasound-guided fine-needle aspiration of a right thyroid nodule due to the difficult inf erior position of the nodule in the superior mediastinum. Reviewed, dictated and finalized at location [facility]. IMPRESSION: 1. Failed ultrasound-guided fine-needle aspiration of a right thyroid nodule du e to the difficult inferior position of the nodule in the superior mediastinum.
== END 2022-11-15 12:32 | disposition home or self-care (01) ==
PROVIDERS: PCP Internal Medicine; Visit Provider Internal Medicine
DX: E04.1 Nontoxic single thyroid nodule (principal)
CPT/HCPCS: 10005

== ENCOUNTER 2024-01-01 16:19 | Outpatient (CLI) | payer MEDICARE, SELFPAY ==
--- NOTE | ~2024-01-01 | US_ITS ---
EXAMINATION: US renal BI DATE: 01/01/2024 17:15 INDICATION: N18.32 - Chronic kidney disease, stage 3b TECHNIQUE: Multiple grayscale and Doppler ultrasound images of the kidneys were obtained. COMPARISON: None. FINDINGS: The right kidney measures 6.6 x 3.3 x 4.2 cm. The left kidney measures 10.1 x 5.3 x 4.1 cm. The kidne ys demonstrate normal parenchymal echogenicity. There is no hydronephrosis. The bladder is partially distended, no wall thickening, right ureteral jet not visualized. IMPRESSION: Right renal atrophy. No right ureteral jet detected during this examination. Reviewed, dictated and finalized at location [facility].
== END 2024-01-01 16:20 | disposition home or self-care (01) ==
LOC: ANHIMG 16:21
PROVIDERS: PCP Internal Medicine; Visit Provider Internal Medicine Nephrology
DX: N26.1 Atrophy of kidney (terminal) (principal); N18.32 Chronic kidney disease, stage 3b
CPT/HCPCS: 76775

== ENCOUNTER 2024-05-07 09:14 | Outpatient (CLI) | payer MEDICARE, SELFPAY ==
[2024-05-07 10:29] LABS: Basophils Absolute Auto 0.1 K/mm3 (0.0-0.1); Basophils Percent Auto 1.1 % (0.2-1.2); Eosinophils Absolute Auto 0.2 K/mm3 (0-0.3); Eosinophils Percent Auto 3.7 % (0-4.4); Hematocrit 43.8 % (42.0-52.0); Hemoglobin 14.2 g/dL (14.0-18.0); Immature Granulocyte Absolute 0.01 K/mm3 (0.00-0.031); Immature Granulocyte Percent A 0.2 % (0-0.5); Lymphocytes Percent Auto 21.1 % (18.3-44.2); Mean Corpuscular HGB Conc 32.4 g/dl (32-36); Mean Corpuscular Volume 92.6 fl (80-100); Mean Platelet Volume 10.9 fl (7.4-10.4); Monocytes Absolute Auto 0.6 K/mm3 (0.1-0.6); Neutrophils Absolute Auto 3.6 K/mm3 (1.3-6.7); Neutrophils Percent Auto 63.9 % (45.5-73.1); Platelet Count Result 201 k/mm3 (150-375); Red Blood Count 4.73 M/mm3 (4.6-6.20); Red Cell Distribution Width 12.8 % (11.5-14.5); White Blood Count 5.7 K/mm3 (4.5-10.0)
[2024-05-07 10:35] LABS: Creatinine Urine 256.8 mg/dL; Total Protein Urine Random 49 mg/dL; Ur Ttl Prot Creatinine Ratio 0.19 mg/mg (0-0.20)
[2024-05-07 10:47] LABS: Alanine Aminotransferase 16 U/L (6-50); Albumin Level 4.2 g/dL (3.5-5.1); Alkaline Phosphatase 65 U/L (38-126); Anion Gap 11 mmol/L (4-12); Aspartate Amino Transferase 25 U/L (17-59); Bilirubin,Total 1.4 mg/dL (0.2-1.3); Blood Urea Nitrogen 25 mg/dL (9-20); Calcium 8.6 mg/dL (8.4-10.2); Carbon Dioxide 23 mmol/L (22-30); Chloride 102 mmol/L (98-107); Cholesterol 201 mg/dL (0-200); Estimated Glomerular Filt Rate 36; Glucose 98 mg/dL (65-110); HDL Direct 42 mg/dL; Potassium 3.9 mmol/L (3.4-5.0); Sodium 136 mmol/L (137-145); Triglycerides 102 mg/dL (<150)
[2024-05-07 10:58] LABS: LDL Cholesterol Direct 103 mg/dL
[2024-05-07 11:14] LABS: Prostate Specific Antigen < 0.1 ng/mL (< OR = 4.0)
[2024-05-07 11:49] LABS: Folic Acid 10.6 ng/mL (2.76->20)
== END 2024-05-07 09:15 | disposition home or self-care (01) ==
PROVIDERS: PCP Internal Medicine; Visit Provider Internal Medicine Nephrology
DX: I13.0 Hypertensive heart and chronic kidney disease with heart failure and stage 1 through stage 4 chronic kidney disease, or unspecified chronic kidney disease (principal); I50.9 Heart failure, unspecified; N18.32 Chronic kidney disease, stage 3b; Z12.5 Encounter for screening for malignant neoplasm of prostate; I95.1 Orthostatic hypotension
CPT/HCPCS: 36415; 80053; 80061; 80069; 82306; 82570; 82607; 82746; 83970; 84153; 84156; 84443; 85025; 85027; G0103

== ENCOUNTER 2024-11-10 09:39 | Outpatient (CLI) | payer MEDICARE, SELFPAY ==
[2024-11-10 10:37] LABS: Hemoglobin 14.7 g/dL (14.0-18.0); Mean Corpuscular HGB Conc 32.7 g/dl (32-36); Mean Corpuscular Hemoglobin 30.1 pg (26-34); Mean Corpuscular Volume 92.2 fl (80-100); Mean Platelet Volume 10.7 fl (7.4-10.4); Platelet Count Result 203 k/mm3 (150-375); Red Blood Count 4.88 M/mm3 (4.6-6.20); Red Cell Distribution Width 12.9 % (11.5-14.5)
--- OUTSIDE RECORDS SUMMARY | 2024-11-10 10:49 | XMS_ITS | Clinical Summary ---
Author Organization [facility] Virtual Care Address [address] [place] [id number] Phone Care Team Providers Care [employer] Name Role Phone Robert Andres DO Primary Care Provider [phone] Allergies No known active allergies Medications Eliquis 5 mg tablet 09/19/2021 Active terazosin (HYTRIN) 1 mg capsule Take 1 mg by mouth nightly Active Active Problems No known active problems Surgical History Surgery Date Site/Laterality Comments PROSTATE SURGERY BLADDER SURGERY Medical History Medical History Date Comments Shortness of breath Hypertension Syncope and collapse Pulmonary embolism (HCC) Elevated troponin Heart failure, unspecified (HCC) Lung disease Chest pain Cancer (HCC) Family History Medical History Relation Name Comments Lung cancer Father Dementia Mother Relation Name Status Comments Father (Age 61) Mother (Age 93) Social History Tobacco Use Types Packs/Day Years Used Date Smoking Tobacco: Never Smokeless Tobacco: Never Personal Safety Answer Date Recorded Getting School Help Needed Not on file 10/09 Sex and Gender Information Value Date Recorded Sex Assigned at Not on file Legal Sex Male 8:00 AM [employer] Gender Identity Not on file Sexual Orientation Not on file Obstetrics History Last Filed Vital Signs Vital Sign Reading Time Taken Comments Blood Pressure 130/76 10/05/2021 9:50 AM [employer] Pulse 85 10/05/2021 9:50 AM [employer] Temperature - - Respiratory Rate - - Oxygen Saturation 96% 10/05/2021 9:50 AM [employer] Inhaled Oxygen Concentration - - Weight 71.3 kg (157 lb 2.2 oz) 10/05/2021 9:50 A M [employer] Height 175.3 cm (5' 9 ) 10/05/2021 9:50 AM [employer] Body Mass Index 23.21 10/05/2021 9:50 AM [employer] Plan of Treatment Health Maintenance Due Date Last Done Comments Depression Screening 1945 Fall Risk Assessment 1945 DTaP/Tdap/Td Vaccine (1 - Tdap) 1954 Hepatitis B Screening 1961 Pneumococcal vaccine 65+ (1 of 1 - PCV) 1993 Zoster Vaccine (1 of 2) 1993 Well Visit 65+ 2008 Covid-19 Vaccine ( season) 2024, 11/24/2020 Influenza Vaccine (#1) 2024 Insurance [facility] Address: [facility] [address] [place] [address] Care Teams [employer] Relationship Specialty Start Date End Date Robert Andres DO [facility] [address] [place] [id number] PCP - General Family Medicine 08/24/21
--- OUTSIDE RECORDS SUMMARY | 2024-11-10 10:49 | XMS_ITS | CONTINUITY OF CARE DOCUMENT ---
Author Name alex johnson Address Unknown Organization [facility] Address [address] [place] [address] Phone [phone] Care Team Providers Care Data Management Associate Name Role Phone Nilson RAMOS, Juan Alberto Unavailable LEE ANN RAMOS, PATRICIA Allison Unavailable [phone] PATRICIA NANCE MD Unavailable PROBLEMS Condition Status Date Provider Notes S/P Dual chamb PCM - Biotron ik ( MRI Safe) active Vanessa Cagle Cardiology examination active Juan Alberto marie MD HTN active Juan Alberto Devine MD Atrial fib paroxysmal active Claudia Ventimi glia [employer] TE[employer]ER Chronic kidney disease, unspecified active Claudia Ventimiglia ESOL TEACHER ENCOUNTERS Date Type Provider Location Encounter Diag nosis - In-person encounter Office Visit Juan Alberto Devine MD [facility] Chronic kidney disease, unspecified - In-person encounter Office Visit Juan Alberto Devine MD [facility] Atrial fib paroxysmal - In-person encounter Office Visit Juan Alberto Devine MD [facility] Cardiology examinationHTN - In-person encounter Office Visit Juan Alberto Devine MD [facility] VITAL SIGNS Date Observation Value Provider Body Mass Index (Ratio) 24.36 kg/m2 Federico Devine MD blood pressure, diastolic 86 mm[Hg] Li nkLogic blood pressure, systolic 158 mm[Hg] Elsy kLogic blood pressure, cuff size regular Ol ivia Handy blood pressure, diastolic 86 mm[Hg] Ol ivia Handy blood pressure, systolic 158 mm[Hg] Senthil via Handy respiratory rate E&M 10 /min Agueda Handy oxygen saturation, oximetry 97 % Agueda Handy pulse rate 73 /min Agueda Handy weight E&M 165 [lb_av] Agueda Handy height E&M 69 [in_i] Agueda Handy Body Mass Index (Ratio) 24.22 kg/m2 Kannan Hi blood pressure, diastolic 81 mm[Hg] Rosina nkLogic blood pressure, systolic 135 mm[Hg] Elsy kLogic blood pressure, cuff size regular Ja rret blood pressure, diastolic 81 mm[Hg] Ja rret blood pressure, systolic 135 mm[Hg] Jar ret pulse rate 74 /min Hermilo oxygen saturation, oximetry 95 % Hermilo respiratory rate E&M 12 /min Hermilo weight E&M 164 [lb_av] Hermilo erda y height E&M 69 [in_i] Hermilo erda y Body Mass Index (Ratio) 24.07 kg/m2 Federico Devine MD blood pressure, diastolic 99 mm[Hg] St cesario Jo blood pressure, systolic 156 mm[Hg] Beth Jo oxygen saturation, oximetry 98 % Jill Jo pulse rate 76 /min Jill Jo weight E&M 163 [lb_av] Jill Jo respiratory rate E&M 14 /min Jill mcdaniel height E&M 69 [in_i] Jill Sandro ALLERGIES No Known Drug Allergies HISTORY OF MEDICATION USE Medication Status Instructions Dates Provider Indications Com ments lisinopril 5 mg tablet active 1 tablet by mouth twice a day Claudia Ventimiglia [employer] TE[employer] amlodipine 5 mg tablet completed Take 1/2 tablet by mouth once a day - 9 Claudia Ventimiglia [employer]OL TEACHER Eliquis 2.5 mg tablet active Take 1 tablet by mouth twice a day Claudia Ventimiglia ESOL TEACHER SOCIAL HISTORY Date Observation Value Provider personal history of marijuana use no Claudia Ventimiglia ESOL TEACHER drug use no Claudia Ventimig margaret [facility] alcohol use no Claudia Ventimig margaret [facility] passive cigarette sm khadra exposure no Claudia Ventimiglia [facility] chewing tobacco use Never Claudia V entimiglia [facility] smoking status Never smoker Claudia Ventim iglia [employer] TEACHER personal history of marijuana use no Claudia Ventimiglia ESOL TEACHER drug use no Claudia Ventimig margaret [employer] TE[employer]ER alcohol use no Claudia Ventimig margaret [employer] TE[employer]ER passive cigarette sm khadra exposure no Claudia Ventimiglia [employer]OL TEACHER chewing tobacco use Never Claudia V entimiglia [employer] TEACHER smoking status Never smoker Claudia Ventim iglia [facility] social history reviewed E&M revi ewed - no changes required Juan Alberto Devine MD social history E&M S moking History: Isaiah val has never smoked. Juan Alberto Devine MD passive cigarette sm khadra exposure no Jill Jo chewing tobacco use Never Jill Da luisito smoking status Never smoker Jill Jo INSURANCE PROVIDERS Payer name Policy type / Coverage type [place] [employer] MEDICARE ADVANTAGE PLAN (PPO) Medicare [id number] ADVANCE DIRECTIVES Name Date DISCUSSED - NO DECISION MADE TREATMENT PLAN Date Name Performer [id number],C,B P elevated today at 155/99. Advised to monitor BP at home and aim for below 140 systolic. Pt stated average at home for last month was 140/77. Juan Alberto Devine MD [id number],SJuan Alberto MD Cardiology:follows moreno Hassan ill get updated labs [facility] Cardiology:BP above goal but well controlled per patient home log reports c ontinue present medication regimen T he following medications were removed from the medication list: Amlodipine 5 Mg Tablet (Amlodipine) ..... Take 1/2 tablet by mouth once a day His updated medication list for this problem includes: Lisinopril 5 Mg Tablet (Lisinopril) ..... 1 tablet by mouth twice a day [facility] Cardiology:remains i n NSR at this time l ast device check shows 0% afib burden R eports of hematuria 2 weeks ago that resolved with dose reduction G iven his age and CKD will decrease his dose to 2.5 mg once daily I nstructed to stop with recurrent hematuria and have recommended referral to urology T he following medications were removed from the medication list: Amlodipine 5 Mg Tablet (Amlodipine) ..... Take 1/2 tablet by mouth once a day His updated medication list for this problem includes: Lisinopril 5 Mg Tablet (Lisinopril) ..... 1 tablet by mouth twice a day [facility] Cardiology:BP 135/81 at goal c ontinue present medication regimen H is updated medication list for this problem includes: Amlodipine 5 Mg Tablet (Amlodipine) ..... Take 1/2 tablet by mouth once a day [facility] Cardiology:no noted on afib on last 2 remote checks r emains on eliquis for AC no bleeding issues H is updated medication list for this problem includes: Amlodipine 5 Mg Tablet (Amlodipine) ..... Take 1/2 tablet by mouth once a day Claudia Almendarez [employer] TEACH[employer] Cardiology:BP elevat ed today at 155/99. Advised to monitor BP at home and aim for below 140 systolic. Pt stated average at home for last month was 140/77. Juan Alberto Devine MD Cardiology Juan Alberto Cook Date Name EKG HISTORY OF PROCEDURES Procedure Date Procedure Name Provider Procedure Notes S tatus Complex e/m visit add on Juan Alberto Devine MD completed EKG Juan Alberto Devine MD complet ed EKG Juan Alberto Devine MD complet ed
--- OUTSIDE RECORDS SUMMARY | 2024-11-10 10:49 | XMS_ITS | Referral Summary ---
Author Organization [facility] Virtual Care Address [address] [place] [phone] Phone Care Team Providers Care Billing Machine Operator Name Role Phone Robert Andres DO Primary Care Provider [phone] Allergies No known active allergies Medications Eliquis 5 mg tablet 09/19/2021 Active terazosin (HYTRIN) 1 mg capsule Take 1 mg by mouth nightly Active Active Problems No known active problems Social History Tobacco Use Types Packs/Day Years Used Date Smoking Tobacco: Never Smokeless Tobacco: Never Personal Safety Answer Date Recorded Getting School Help Needed Not on file 10/09 Sex and Gender Information Value Date Recorded Sex Assigned at Not on file Legal Sex Male 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 Gender Identity Not on file Sexual Orientation Not on file Last Filed Vital Signs Vital Sign Reading Time Taken Comments Blood Pressure 130/76 10/05/2021 9:50 AM CUSTOMER SERVICE DRIVER Pulse 85 10/05/2021 9:50 AM CUSTOMER SERVICE DRIVER Temperature - - Respiratory Rate - - Oxygen Saturation 96% 10/05/2021 9:50 AM CUSTOMER SERVICE DRIVER Inhaled Oxygen Concentration - - Weight 71.3 kg (157 lb 2.2 oz) 10/05/2021 9:50 A M CUSTOMER SERVICE DRIVER Height 175.3 cm (5' 9 ) 10/05/2021 9:50 AM CUSTOMER SERVICE DRIVER Body Mass Index 23.21 10/05/2021 9:50 AM CUSTOMER SERVICE DRIVER Plan of Treatment Not on file Insurance [facility] Address: [address] [phone] Care Teams Billing Machine Operator Relationship Specialty Start Date End Date Robert Andres DO [address] [place] [address] PCP - General Family Medicine 08/24/21
--- OUTSIDE RECORDS SUMMARY | 2024-11-10 10:49 | XMS_ITS | Data Portability ---
[facility] [address] [place] [address] Care Team Providers Care Police Lieutenant Name Role Phone PATRICIA ANDRES Primary Care Provider [phone] LINDA LEVY Food Checker Assessment Encounter Date Assessment Date Assessment LastModified by Organization Details LastModified Time 12/14/2023 12/14/2023 I would like to start Coreg 3.125 twice daily he wants to discuss it with his kidney doctor first. Dyslipidemia check blood work next time he just had a lot of blood work by renal he has been resistant to take cholesterol medicine will obtain his old records continue to follow-up with renal continue to take the Eliquis he is not interested in any immunizations at this time see me back in 4. [email or web address] Not available 12/14/2023 22:33:33 04/18/2024 04/18/2024 continue current therapy blood pressure today 150/90 but he he is very adamant about taking his pressures daily and his readings at home are much better than this in fact he has got some that are down in the systolics of 90 so right now we are going to take the lisinopril 5 mg in the morning in the afternoon he will take 2.5 mg only if the pressure is above 130 when he was doing the 5 b.i.d. he was having hypotensive readings. See me back in 4 months [email or web address] Not available 04/19/2024 12:45:03 10/10/2024 10/10/2024 We will increase his lisinopril to 10 mg in the morning 5 mg at night he continues with the Eliquis at this time he refuses flu pneumococcal and Tdap follow up will be in 4-6 months but he will let me know his blood pressure is running in a couple of weeks as stated he was very engaged in monitoring his blood pressure [place] [id number] Not available 10/11/2024 17:02:34 Plan of Treatment Reminders Order Date Submit Date Provider Last Modified By Organization Details Last Modified Time Details Appointments ANY 15 2024 10:45A M Patricia Andres MD Not available Not available Not available Lab lipid panel, serum 2024 025 [place] [address] [facility], [address], [place], [address], 10/10/2024 12:47:57 CMP, serum or plasma 2024 025 [place] [address] [facility], [address], [place], [address], 10/10/2024 12:47:57 CBC w/ auto diff 2024 025 [place] [address] [facility], [address], [place], [address], 10/10/2024 12:47:57 urinalysi s, microscop ic 2024 025 [place] [address] [facility], [address], [place], [address], 10/10/2024 12:47:57 PSA, total, serum or plasma 2023 024 [facility], [address], [place], [address], 05/07/2024 15:41:54 lipid panel, serum 2023 024 [facility], [address], [place], [address], 05/07/2024 12:23:42 CMP, serum or plasma 2023 024 [place] [facility], [address], [place], [address], 05/07/2024 15:41:54 CBC w/ auto diff 2023 024 [facility], [address], [place], [address], 05/09/2024 11:15:20 Referral None recorded. Procedures None recorded. Surgeries None recorded. Imaging None recorded. Medication Orders lisinopri l 10 mg tablet 2024 025 [email or web address] Not available 10/10/2024 12:47:57 lisinopri l 5 mg tablet 2024 025 Not available 10/10/2024 12:47:57 Patient TargetsNo targets recorded. Patient Instructions Encounter Date Encounter Id Patient Instructions Last Modified By Organization Details Last Modified Time 10/10/2024 [id number] A healthy lifestyle: care instructions [email or web address] Not available 10/10/2024 12:47:57 Reason for Referral None Reported. Results Created Date Observation Date Name Description Value Unit Range Abnormal Flag Note LastModifiedBy Organization Detail LastModifiedTime 01/02/20 24 01/01/2024 US, renal No observ ation record ed. [facility] [address], [place], [address], 01/07/2024 13:06:25 Result Notes None recorded. Problems Name Problem SNOMED Code Status Onset Date Resolution Date Notes Provider Name and Address Organization Details Recorded Time Essential hypertensio n 33212470 Active 2023 Patricia Andres MD Attn: Alex briceño,[address] [facility], [place], [address], [place] - [facility] 4 22:31:29 Hyperlipide azra 77867895 Active 2023 Patricia Andres MD Attn: Alex briceño,[address] [facility], [place], [address], [place] [facility] 4 22:31:30 Permanent cardiac pacemaker 7025277043812 02 Active 2023 Patricia Andres MD Attn: Alex briceño,[address], [place], [address], [place] [facility] 4 22:31:32 History of pulmonary embolus 055139957 Active 2023 Patricia Andres MD Attn: Alex briceño,[address], [place], [address], [place] [facility] 4 22:31:35 History of malignant neoplasm of prostate 353216778 Active 2023 Patricia Andres MD Attn: Alex g,[address], [place], [address], [place] [facility] 4 22:31:36 Chronic kidney disease stage 3 568229407 Active 2023 Patricia Andres MD Attn: Amosjavy briceño,[address], [place], [address], [place] [facility] 4 22:31:59 History of occlusion of central retinal vein 821682485 Active 2023 Patricia Andres MD Attn: Alex g,[address], [place], [address], [place] [facility] 4 22:32:19 Tetanus vaccination declined by patient 878777136 Active 2024 Patricia Andres MD Attn: Amosjavy briceño,[address], [place], [address], [place] [facility] 5 17:01:46 Pneumococca l vaccination declined 074013246 Active 2024 Patricia Andres MD Attn: Amosjavy g,[address], [place], [address], [place] [facility] 5 17:01:48 Problem Notes None recorded. Procedures Surgical History Date Name Laterality Status Provider Name and Address Organization Details Recorded Time Eye Surgery completed Trinity Meneses [place] - [facility] 12/14/2023 11:56:10 Pacemaker completed Trinity Meneses [place] - [facility] 12/14/2023 11:56:17 Tonsillectomy completed MARYANN Suarez - [facility] 12/14/2023 11:56:25 Prostate Biopsy completed MARYANN Montalvo [facility] 12/14/2023 11:56:33 Prostatectomy completed MARYANN Suarez [facility] 12/14/2023 11:56:39 Imaging Results Imaging Date Name Status LastModified by Organiz ation Details LastModified Time 01/01/2024 US, renal completed [email or web address] [address] [facility] [address], [place], [address], 01/07/2024 13:06:25 Procedure Notes None recorded. Medical Equipment None Reported. Allergies No known drug allergies Medications Name Sig Start Date Stop Date Status Note LastModified by Organization Details LastModified Time amlodipine 5 mg tablet TAKE 1 TABLET BY MOUTH DAILY 04/18 completed Not Available Not Available Not Available amoxicillin 875 mg tablet TAKE 1 TABLET BY MOUTH TWICE DAILY active Not Available Not Available No t Available lisinopril 10 mg tablet Take 1 tablet am 2024 active Not Available Not Available Not Avai lable lisinopril 5 mg tablet take 1 tablet PM 2024 active Not Available Not Available Not Avai lable lisinopril 5mg twice daily active Not Available Not Available No t Available Eliquis 5 mg tablet TAKE 1 TABLET BY MOUTH TWICE DAILY 2023 active Not Available Not Available Not Avai lable Vitals Date Recorded Body height Body mass index (BMI) Body weight Heart rate Oxygen saturation Oxygen saturation in Arterial blood by Pulse oximetry Systolic blood pressure Diastolic blood pressure Provider Name and Address Organization Details Last Updated DateTime 4 175.26 cm 24.9 kg/m2 05537.0 3 g 71 /min 98 % 98 % 140 mm[Hg] 76 mm[Hg] MARYANN Suarez [facility] 4 11:59:22 Date Recorded Body height Body mass index (BMI) Body weight Heart rate Oxygen saturation Oxygen saturation in Arterial blood by Pulse oximetry Systolic blood pressure Diastolic blood pressure Provider Name and Address Organization Details Last Updated DateTime 4 175.26 cm 24.5 kg/m2 14067.3 3 g 77 /min 97 % 97 % 150 mm[Hg] 90 mm[Hg] Filomena Zepeda MARYANN [facility] 4 10:58:22 Date Recorded Body height Body mass index (BMI) Body weight Oxygen saturation Oxygen saturation in Arterial blood by Pulse oximetry Heart rate Systolic blood pressure Diastolic blood pressure Provider Name and Address Organization Details Last Updated DateTime 5 175.26 cm 25.1 kg/m2 82578.6 3 g 97 % 97 % 70 /min 140 mm[Hg] 90 mm[Hg] Kendra tipton MA [facility] 5 11:33:06 Social History Question Answer Notes LastModified by Organizat ion Details LastModified Time Tobacco Smoking Status Never Smoker Trinity Meneses MA [facility], [facility] 12/14/2023 11:55:02 Do You Have An Advance Directive? No Information not available 12/14/2023 What Is Your Level Of Alcohol Consumption? None Information not available 12/14/2023 Are You Blind Or Do You Have Difficulty Seeing? No Information not available 12/14/2023 What Is Your Level Of Caffeine Consumption? Moderate Coffee, Soda, Tea Information not available 12/14/2023 In The 14 Days Before Symptom Onset, Have You Had Close Contact With A Laboratory-confir med COVID-19 While That Case Was Ill? No Information not available 12/14/2023 In The 14 Days Before Symptom Onset, Have You Had Close Contact With A Person Who Is Under Investigation For COVID-19 While That Person Was Ill? No Information not available 12/14/2023 Have You Been To An Area Known To Be High Risk For COVID-19? No Information not available 12/14/2023 Are You Deaf Or Do You Have Serious Difficulty Hearing? Yes Some Times Information not available 12/14/2023 What Type Of Diet Are You Following? REGULAR Information not available 12/14/2023 Are There Any Guns Present In Your Home? No Information not available 12/14/2023 What Was The Date Of Your Most Recent Tobacco Screening? 10/10/2024 [email or web address] Information not available 10/10/2024 What Is Your Relationship Status? Information not available 12/14/2023 Do You Use Your Seat Belt Or Car Seat Routinely? Yes Information not available 12/14/2023 Do You Have Smoke And Carbon Monoxide Detectors In Your Home? Yes Information not available 12/14/2023 Do You Use Sunscreen Routinely? Yes Information not available 12/14/2023 Has Tobacco Cessation Counseling Been Provided? No Information not available 12/14/2023 Do You Or Have You Ever Used Any Other Forms Of Tobacco Or Nicotine? No Information not available 12/14/2023 Sex: Male Functional Status Question Answer Note LastModified by Organization D etails LastModified Time Are you able to care for yourself? Yes Information n ot available 12/14/2023 What is your exercise level? None Information not available 12/14/2023 Mental Status None recorded. Family History Relationship Description Onset Age of this Age Resolved Age Notes LastModified by Organization Details LastModified Time Father Malignant tumor of lung [email or web address] Not available 2024 09:38:35 Medical History Condition Response Coronary Artery Disease N Other Y Atrial Fibrillation N High Blood Pressure Y Thyroid Problems N Kidney or Bladder Problems Y Depression N COPD N Blood Clots Y GI Problems N Have you had a mammogram in the last yea r? N Skin Problems N Anemia N Heart Attack ([place]) N Diabetes N Anxiety Disorder N Muscle, Joint, or Bone Problems N Seizures/Epilepsy N Have you had a colonoscopy in the last 1 0 years? N Acid Reflux (GERD) N Cancer Y Stroke N Allergies N Asthma N Have you had a PSA blood test in the las t year? N High Cholesterol Y Hepatitis N Liver Disease N Headaches N Osteoporosis N Heart Failure N Immunizations Vaccine Type Date Status Note Provider Nam e and Address Organization Details Recorded Time COVID-19 vaccine, vector-nr, rS-Ad26, PF, 0.5 mL 11/24/2020 yonny herbert [place] - [facility] 10/09/2024 09:35:54 COVID-19 vaccine, vector-nr, rS-Ad26, PF, 0.5 mL 08/03/2021 yonny herbert [place] - [facility] 10/09/2024 09:35:54 Past Encounters Encounter ID Performer Location Encounter Start Date Encounter Closed Date Diagnosis/Indication Diagnosis SNOMED-CT Code Diagnosis ICD10 Code Diagnosis Note [id number] MD Martha Medrano (Adult Med) [address] [place] [phone] 12/14/2023 11:19:18 12/14/2023 12:13:25 Essential hypertension 01054635 I10 Hyperlipidemia 42143715 E78.5 Permanent cardiac pacemaker 0050590293 19157 Z95.0 History of pulmonary embolus 114959353 Z86.711 History of malignant neoplasm of prostate 270517214 Z85.46 Chronic ki dney disease stage 3 761415693 N18.30 History of occlusion of central retinal vein 380109453 Z86.924 [id number] Patricia Andres MD [facility] (Adult Med) [address] [place] [phone] 04/18/2024 10:49:58 04/18/2024 11:38:54 Essential hypertension 69720365 I10 Screening for malignant neoplasm of prostate 929350834 Z12.5 Chronic ki dney disease stage 3 803639955 N18.30 Hyperlipidemia 51550771 E78.5 History of pulmonary embolus 974743461 Z86.711 Permanent cardiac pacemaker 0420923625 24072 Z95.0 [id number] [facility] [address] [place] [phone] 10/10/2024 11:21:36 10/10/2024 12:30:17 Essential hypertension 56360352 I10 Hyperlipidemia 63791889 E78.5 Body mass index 25-29 - overweight 585212908 Z68.25 Overweight 774833137 E66 .3 Chronic ki dney disease stage 3 693281343 N18.30 History of occlusion of central retinal vein 555005769 Z86.718 History of malignant neoplasm of prostate 673901653 Z85.46 History of pulmonary embolus 233099471 Z86.711 Permanent cardiac pacemaker 2804397937 62244 Z95.0 Pneumococc al vaccination declined 815726296 Z28.21 Tetanus va ccination declined by patient 384965942 Z28.21 Health Concerns Section Related Observation LastModified by Organization Detai ls LastModified Time None Recorded Concern Status LastModified by Organization Details LastModified Time None Recorded Advance Directives Directive N: Payers Encounter Date Sequence Insurance Name Policy Number Policy Toth Covered Member ID Toth Member ID Guarantor Name 12/14/2023 1 [facility] (MEDICARE REPLACEMENT/A DVANTAGE - PPO) [id number] Dewey Burroughs Edwards [id number] Dewey Edwards 04/18/2024 1 [facility] (MEDICARE REPLACEMENT/A DVANTAGE - PPO) [id number] Dewey Burroughs Edwards [id number] Dewey Edwards 10/10/2024 1 [facility] (MEDICARE REPLACEMENT/A DVANTAGE - PPO) [id number] Dewey Burroughs Edwards [id number] Dewey Edwards Notes Date Note Type Note Provider Name and Address Organization Details Recorded Time 12/14/2023 text/html 78-year-old with hyperlipidemia history of pulmonary embolus pacemaker prostate cancer hyperlipidemia and retinal vein occlusion and CKD 3 for ongoing management of his medical problems he is taking amlodipine and Eliquis he said some problems with hypotension when he took tamsulosin recently had a large workup with the kidney doctors as they are looking into the etiology of his renal dysfunction Patricia Andres MD Attn: Accounting,[address], [place], [address], [facility] - [facility] 12/14/2023 22:33:57 04/18/2024 text/html hypertension titrating his lisinopril he has had some hypotensive readings. Dyslipidemia does try to watch diet he is taking his statin CKD 3 he has not had any fatigue there has not been any edema. History of pulmonary embolus he is taking his Eliquis Patricia Andres MD Attn: Accounting,[address], [place], [address], [place] - [facility] 04/19/2024 12:45:19 10/10/2024 text/html hypertension he is having some spurious high readings he has brought his tables that he does very well at home in is very involved in his care of his blood pressure and he is having some spikes. Hyperlipidemia he has been reluctant and has refused all cholesterol medications. Central retinal vein occlusion he has had no further deterioration of vision. History of malignant neoplasm of prostate there has not been any genitourinary symptoms per se CKD 3 he is following up with renal but he has had no stigmata of any symptoms consistent with renal disease at this time.. Cardiac pacemaker he has not had any palpitations no dizziness no unexplained syncope or presyncope spells Patricia Andres MD Attn: Accounting[address] [place], [address], [facility] - [facility] 10/11/2024 17:02:52
[2024-11-10 10:57] LABS: Alanine Aminotransferase 20 U/L (6-50); Albumin Level 4.2 g/dL (3.5-5.1); Alkaline Phosphatase 77 U/L (38-126); Anion Gap 9 mmol/L (4-12); Aspartate Amino Transferase 23 U/L (17-59); Blood Urea Nitrogen 23 mg/dL (9-20); Calcium 8.9 mg/dL (8.4-10.2); Carbon Dioxide 26 mmol/L (22-30); Chloride 106 mmol/L (98-107); Cholesterol 195 mg/dL (0-200); Estimated Glomerular Filt Rate 40; Glucose 112 mg/dL (65-110); HDL Direct 43 mg/dL; Phosphorus 3.2 mg/dL (2.5-4.5); Potassium 3.9 mmol/L (3.4-5.0); Sodium 141 mmol/L (137-145); Triglycerides 85 mg/dL (<150)
[2024-11-10 11:08] LABS: LDL Cholesterol Direct 103 mg/dL
[2024-11-10 11:10] LABS: Creatinine Urine 215.2 mg/dL; Total Protein Urine Random 20 mg/dL; Ur Ttl Prot Creatinine Ratio 0.09 mg/mg (0-0.20)
[2024-11-10 11:45] LABS: Parathyroid Intact 40.4 pg/mL (14.5-75.2)
[2024-11-10 11:49] LABS: Vitamin D 25 Hydroxy 34.1 ng/mL
== END 2024-11-10 09:40 | disposition home or self-care (01) ==
PROVIDERS: PCP Internal Medicine; Visit Provider Internal Medicine Nephrology
DX: I12.9 Hypertensive chronic kidney disease with stage 1 through stage 4 chronic kidney disease, or unspecified chronic kidney disease (principal); N18.32 Chronic kidney disease, stage 3b; E55.9 Vitamin D deficiency, unspecified
CPT/HCPCS: 36415; 80053; 80061; 82306; 82570; 83970; 84100; 84156; 85027

== ENCOUNTER 2025-05-14 09:47 | Outpatient (CLI) | payer MEDICARE, SELFPAY ==
[2025-05-14 10:29] LABS: Hematocrit 41.7 % (42.0-52.0); Hemoglobin 13.7 g/dL (14.0-18.0); Mean Corpuscular HGB Conc 32.9 g/dl (32-36); Mean Corpuscular Hemoglobin 30.2 pg (26-34); Mean Corpuscular Volume 91.9 fl (80-100); Platelet Count Result 190 k/mm3 (150-375); Red Blood Count 4.54 M/mm3 (4.6-6.20); White Blood Count 5.7 K/mm3 (4.5-10.0)
--- OUTSIDE RECORDS SUMMARY | 2025-05-14 10:42 | XMS_ITS | Clinical Summary ---
Author Organization [facility] Virtual Care Address [address] [place] [phone] Phone Care Team Providers Care Missile Control Pilot Name Role Phone Robert Andres DO Primary Care Provider Allergies No known active allergies Medications Eliquis 5 mg tablet 09/19/2021 Active terazosin (HYTRIN) 1 mg capsule Take 1 mg by mouth nightly Active Active Problems No known active problems Surgical History Surgery Date Site/Laterality Comments PROSTATE SURGERY BLADDER SURGERY Medical History Medical History Date Comments Shortness of breath Hypertension Syncope and collapse Pulmonary embolism Elevated troponin Heart failure, unspecified (HCC) Lung [...] on file Legal Sex Male 8:00 AM ARCHEOLOGIST CLASSICAL Gender Identity Not on file Sexual Orientation Not on file Obstetrics History Last Filed Vital Signs Vital Sign Reading Time Taken Comments Blood Pressure 130/76 10/05/2021 9:50 AM ARCHEOLOGIST CLASSICAL Pulse 85 10/05/2021 9:50 AM ARCHEOLOGIST CLASSICAL Temperature - - Respiratory Rate - - Oxygen Saturation 96% 10/05/2021 9:50 AM ARCHEOLOGIST CLASSICAL Inhaled Oxygen Concentration - - Weight 71.3 kg (157 lb 2.2 oz) 10/05/2021 9:50 A M ARCHEOLOGIST CLASSICAL Height 175.3 cm (5' 9) 10/05/2021 9:50 AM ARCHEOLOGIST CLASSICAL Body Mass Index 23.21 10/05/2021 9:50 AM ARCHEOLOGIST CLASSICAL Plan of Treatment Health Maintenance Due Date Last Done Comments Depression Screening 1943 Fall Risk Assessment 1945 DTaP/Tdap/Td Vaccine (1 - Tdap) 1954 Hepatitis B Screening 1961 Pneumococcal vaccine 65+ (1 of 1 - PCV) 1993 Zoster Vaccine (1 of 2) 1993 Well Visit 65+ 2008 Covid-19 Vaccine ( season) 2025, 11/24/2020 Influenza Vaccine (#1) 2025 Insurance Care Teams Missile Control Pilot Relationship Specialty Start Date End Date Robert Andres [place] [facility] [place] [address] PCP - General Family Medicine 08/24/21
[2025-05-14 10:44] LABS: Total Protein Urine Random 12 mg/dL; Ur Ttl Prot Creatinine Ratio 0.05 mg/mg (0-0.20)
[2025-05-14 10:49] LABS: Albumin Level 4.0 g/dL (3.5-5.1); Anion Gap 7 mmol/L (4-12); Blood Urea Nitrogen 27 mg/dL (9-20); Calcium 8.8 mg/dL (8.4-10.2); Carbon Dioxide 25 mmol/L (22-30); Chloride 105 mmol/L (98-107); Estimated Glomerular Filt Rate 33; Glucose 104 mg/dL (65-110); Potassium 4.4 mmol/L (3.4-5.0); Sodium 137 mmol/L (137-145)
[2025-05-14 11:03] LABS: Parathyroid Intact 37.7 pg/mL (14.5-75.2)
== END 2025-05-14 09:48 | disposition home or self-care (01) ==
PROVIDERS: PCP Internal Medicine; Visit Provider Internal Medicine Nephrology
DX: I12.9 Hypertensive chronic kidney disease with stage 1 through stage 4 chronic kidney disease, or unspecified chronic kidney disease (principal); N18.32 Chronic kidney disease, stage 3b
CPT/HCPCS: 36415; 80069; 82570; 83970; 84156; 85027

== ENCOUNTER 2025-06-08 09:06 | Outpatient (CLI) | payer MEDICARE, SELFPAY ==
[2025-06-08 10:17] LABS: Anion Gap 8 mmol/L (4-12); Blood Urea Nitrogen 32 mg/dL (9-20); Calcium 8.7 mg/dL (8.4-10.2); Carbon Dioxide 22 mmol/L (22-30); Chloride 105 mmol/L (98-107); Estimated Glomerular Filt Rate 32; Glucose 103 mg/dL (65-110); Potassium 3.9 mmol/L (3.4-5.0); Sodium 135 mmol/L (137-145)
== END 2025-06-08 09:07 | disposition home or self-care (01) ==
PROVIDERS: PCP Internal Medicine; Visit Provider Internal Medicine Nephrology
DX: N18.32 Chronic kidney disease, stage 3b (principal)
CPT/HCPCS: 36415; 80048